=== PATIENT | male | born 1965 | race Caucasian/White ===

== ENCOUNTER 2020-08-09 08:02 | Emergency (ER) | payer OTHER, SELFPAY ==
[2020-08-09] VITALS (9 sets, daily range): BP systolic 118–162; BP diastolic 77–97; PULSE 64–74; RESP 11–23; TEMP 36.4; O2SAT 95–99; BMI 27.3
--- NOTE | 2020-08-09 08:15 | DI.RAD.S_ITS ---
PROCEDURE: XR CHEST 1V INDICATIONS: chest pain TECHNIQUE: One view of the chest was acquired. COMPARISON: None. FINDINGS: Surgical changes and devices: None. Lungs and pleura: Lungs are clear. No pleural effusions or pneumothorax. Mediastinum: Mediastinal contours appear normal. Heart size is normal. Bones and chest wall: No suspicious bony lesions. Overlying soft tissues appear unremarkable. IMPRESSION: No evidence acute pulmonary process. Dictated by: Gavin Martinez M.D. on 08/09/2020 at 8:44 Approved by: Gavin Martinez M.D. on 08/09/2020 at 8:44
[2020-08-09] MEDS: ASPIRIN 81 MG CHEW TAB 324 MG PO (08:21)
[2020-08-09] MEDS: SODIUM CHLORIDE 0.9% 1,000 ML 150 ML IV (08:21)
[2020-08-09 08:22] LABS: Add Manual Diff / Slide Review NO; Basophils Absolute Auto 100 /uL (0-100); Eosinophils Absolute Auto 100 /uL (0-450); Eosinophils Percent Auto 0.7 % (2-4); Hematocrit 51.2 % (41-53); Hemoglobin 17.5 g/dL (13.5-17.5); Lymphocytes Absolute Auto 2400 /uL (1100-4500); Lymphocytes Percent Auto 22.7 % (25-40); Mean Corpuscular HGB Conc 34.2 % (30-36); Mean Corpuscular Hemoglobin 29.8 PG (26-34); Mean Corpuscular Volume 87.1 fL (80-100); Monocytes Absolute Auto 300 /uL (0-900); Monocytes Percent Auto 3.3 % (3-14); Neutrophils Absolute Auto 7700 /uL (1500-7000); Neutrophils Percent Auto 72.3 % (50-75); Platelet Count 366 X10^3/uL (150-400); Red Blood Cell Count 5.88 X10^6/uL (4.5-5.9); White Blood Cell Count 10.6 X10^3/uL (4.5-11.0)
--- NOTE | 2020-08-09 08:22 | ED_ITS ---
HPI - Chest Pain General Chief Complaint: Shortness of Breath/Dyspnea Stated Complaint: almost collapsed at work, SOB, sweating profusely Time Seen by Provider: 08/09/20 08:15 Source: patient Mode of arrival: Ambulatory Limitations: no limitations History of Present Illness HPI narrative: Patient is a 55-year-old male history of smoking presenting with diaphoresis, bilateral arm weakness and feels like he is going to pass out. He said he was actually sweating last evening he says he usually sleeps thought his but he had some chills and shivers as well. She is otherwise feeling in good health. He denies any chest pain or shortness of breath. No loss of taste or smell or other COVID symptoms. 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 Hedenies any chest pain, numbness or tingling. No headache. Is having some neck pain. Onset (ago): minute(s) Duration: constant Onset: during exertion Related Data Previous Rx's Medication Instructions Recorded albuterol sulfate 2 puff INHALATION Q4-6H PRN #8.5 08/09/20 gram Allergies Allergy/AdvReac Type Severity Reaction Status Date / Time Penicillins [PENICILLINS] Allergy Unknown Unverified 08/29/17 12:11 Review of Systems Review of Systems ROS Unobtainable: All systems reviewed & are unremarkable except as noted in HPI and below Constitutional Constitutional: Reports chills, Reports excessive sweating, Reports fatigue, Denies frequent falls and Denies headache(s) Eyes Eyes: Denies change in vision, Denies eye discharge, Denies irritation and Denies loss of vision ENT Ears, Nose, Mouth, and Throat: Denies change in voice, Denies vertigo, Denies headache(s), Denies neck pain and Denies sore throat Cardiovascular Cardiovascular: Denies chest pain, Denies syncope, Denies irregular heart rhythm, Reports radiating jaw, neck or arm pain, Reports dyspnea and Reports dyspnea on exertion Respiratory Respiratory: Reports dyspnea and Reports dyspnea on exertion Gastrointestinal Gastrointestinal: Denies abdominal pain, Denies change in bowel habits, Denies diarrhea, Denies nausea and Denies vomiting Musculoskeletal Musculoskeletal: Denies myalgias, Reports muscle weakness and Denies neck pain Integumentary/Breasts Skin/Breast: Denies pruritus, Denies erythema, Denies rash and Denies wounds Neurologic Neurologic: Denies vertigo, Denies syncope, Denies frequent falls, Denies headache(s) and Denies loss of vision Endocrine Endocrine: Reports excessive sweating and Reports fatigue Patient History Medical History Erectile dysfunction Social History Smoking Status: Current every day smoker Smoking Status: Current every day smoker Substance Use Type: marijuana Exam Initial Vital Signs Initial Vital Signs: Vital Signs Temperature 97.6 F 08/09/20 08:05 Pulse Rate 74 08/09/20 08:05 Respiratory Rate 16 08/09/20 08:05 Blood Pressure 128/77 08/09/20 08:05 Pulse Oximetry 98 08/09/20 08:05 GENERAL: Alert 55-year-old male diffusely sweating and in no acute distress. HEENT: Head atraumatic,EOMI, pupils reactive, face symmetric, moist mucous membranes CARDIOVASCULAR: Regular rate and rhythm without murmurs, rubs or gallops. RESPIRATORY: Breath sounds equal bilaterally, no wheezes rales or rhonchi. ABDOMEN: Soft, nontender. Normoactive bowel sounds all 4 quadrants. No guarding or rebound. EXTREMITIES: Normal range of motion, no clubbing or edema. Neurovascularly intact NEUROLOGICAL: Alert and oriented x4.Normal gait and speech. Cranial nerves II through XII grossly intact. 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 Course Orders Ordered: ED Orders 08/09/20 08:13 COVID19 -Nasal swab/Pre-Proc Stat 08/09/20 08:15 XR chest 1V Stat Complete Blood Count AUTO DIFF Stat Comprehensive Metabolic Panel Stat D Dimer Stat Lactate (Lactic Acid) Stat Lipase Stat NT-proBNP (BNP-Adult 18+) Stat Procalcitonin Stat Troponin & CK Cardiac Panel Stat EKG-12 Lead Stat 08/09/20 10:16 Troponin I Stat Discontinued Medications Albuterol/Ipratropium (Albuterol/Ipratropium 3 Ml Ampul) 3 ml INH NOW ONE Stop: 08/09/20 08:52 Last Admin: 08/09/20 08:57 Dose: 3 ml Documented by: BELGICA Aspirin (Aspirin 81 Mg Chew Tab) 324 mg PO NOW ONE Stop: 08/09/20 08:16 Last Admin: 08/09/20 08:21 Dose: 324 mg Documented by: NASIM Sodium Chloride (Normal Saline 0.9%) 1,000 mls @ 150 mls/hr IV CONT ARIELLE Last Admin: 08/09/20 08:21 Dose: 150 mls/hr Documented by: NASIM Vital Signs Vital signs: Vital Signs - 8 hr 08/09/20 08:05 08/09/20 08:44 08/09/20 09:00 Temperature 97.6 F Pulse Rate 74 74 70 Respiratory Rate 16 12 11 L Blood Pressure 128/77 129/87 125/88 Pulse Oximetry 98 98 98 08/09/20 09:04 08/09/20 09:30 08/09/20 10:00 Temperature Pulse Rate 64 69 68 Respiratory Rate 16 12 21 Blood Pressure 118/83 Pulse Oximetry 95 96 96 08/09/20 10:01 08/09/20 10:30 08/09/20 11:00 Temperature Pulse Rate 67 71 65 Respiratory Rate 18 20 23 Blood Pressure 144/83 H 150/90 H 162/97 H Pulse Oximetry 96 97 99 MDM - Chest Pain Lab Data Attestation: I reviewed the patient's lab results. Result diagrams: 08/09/20 08:15 08/09/20 08:15 Labs: Lab Results 08/09/20 08/09/20 08/09/20 Range/Units 08:13 08:15 08:15 WBC 10.6 (4.5-11.0) X10^3/uL RBC 5.88 (4.5-5.9) X10^6/uL Hgb 17.5 (13.5-17.5) g/dL Hct 51.2 (41-53) % MCV 87.1 (80-100) fL MCH 29.8 (26-34) PG MCHC 34.2 (30-36) % RDW 14.0 (11.6-14.8) % Plt Count 366 (150-400) X10^3/uL Neut % (Auto) 72.3 (50-75) % Lymph % (Auto) 22.7 L (25-40) % [place] % (Auto) 3.3 (3-14) % Eos % (Auto) 0.7 L (2-4) % Baso % (Auto) 1.0 (0-2) % Neut # (Auto) 7700 H (2506-1169) /uL Lymph # (Auto) 2400 (2455-7716) /uL [place] # (Auto) 300 (0-900) /uL Eos # (Auto) 100 (0-450) /uL Baso # (Auto) 100 (0-100) /uL D-Dimer < 200 (<230) ng/mL Sodium (137-145) mmol/L Potassium (3.4-5.1) mmol/L Chloride (98-107) mmol/L Carbon Dioxide (22-32) mmol/L BUN (9-20) mg/dL Creatinine (0.66-1.25) mg/dL Estimated GFR (>60) mL/min BUN/Creatinine Ratio (6-22) Glucose (70-100) mg/dL Lactate (0.7-2.1) mmol/L Calcium (8.4-10.2) mg/dL Total Bilirubin (0.2-1.3) mg/dL AST (17-59) IU/L ALT (<50) IU/L Alkaline Phosphatase (38-126) U/L Total Creatine Kinase (55-170) U/L CK-MB (CK-2) (<2.37) ng/mL CK-MB (CK-2) Rel Index (1.5-5.0) % Troponin I (0.01-0.034) ng/mL NT-Pro-B Natriuret Pep (<125) pg/mL Total Protein (6.3-8.2) g/dL Albumin (3.5-5.0) g/dL Globulin (1.7-4.1) g/dL Albumin/Globulin Ratio (1.0-2.8) Lipase (23-300) U/L Procalcitonin (<0.5) ng/mL SARS-CoV-2 (PCR) Negative (Negative) 08/09/20 08/09/20 08/09/20 Range/Units 08:15 08:15 10:16 WBC (4.5-11.0) X10^3/uL RBC (4.5-5.9) X10^6/uL Hgb (13.5-17.5) g/dL Hct (41-53) % MCV (80-100) fL MCH (26-34) PG MCHC (30-36) % RDW (11.6-14.8) % Plt Count (150-400) X10^3/uL Neut % (Auto) (50-75) % Lymph % (Auto) (25-40) % [place] % (Auto) (3-14) % Eos % (Auto) (2-4) % Baso % (Auto) (0-2) % Neut # (Auto) (6447-4177) /uL Lymph # (Auto) (5241-1580) /uL [place] # (Auto) (0-900) /uL Eos # (Auto) (0-450) /uL Baso # (Auto) (0-100) /uL D-Dimer (<230) ng/mL Sodium 136 L (137-145) mmol/L Potassium 3.7 (3.4-5.1) mmol/L Chloride 102 (98-107) mmol/L Carbon Dioxide 22 (22-32) mmol/L BUN 19 (9-20) mg/dL Creatinine 1.22 (0.66-1.25) mg/dL Estimated GFR > 60.0 (>60) mL/min BUN/Creatinine Ratio 15.6 (6-22) Glucose 163 H (70-100) mg/dL Lactate 2.2 H (0.7-2.1) mmol/L Calcium 9.7 (8.4-10.2) mg/dL Total Bilirubin 0.5 (0.2-1.3) mg/dL AST 37 (17-59) IU/L ALT 36 (<50) IU/L Alkaline Phosphatase 102 (38-126) U/L Total Creatine Kinase 126 (55-170) U/L CK-MB (CK-2) 2.22 (<2.37) ng/mL CK-MB (CK-2) Rel Index 1.8 (1.5-5.0) % Troponin I < 0.012 < 0.012 (0.01-0.034) ng/mL NT-Pro-B Natriuret Pep 43 (<125) pg/mL Total Protein 7.6 (6.3-8.2) g/dL Albumin 4.7 (3.5-5.0) g/dL Globulin 2.9 (1.7-4.1) g/dL Albumin/Globulin Ratio 1.6 (1.0-2.8) Lipase 43 (23-300) U/L Procalcitonin 0.08 (<0.5) ng/mL SARS-CoV-2 (PCR) (Negative) 08/09/20 Range/Units 10:30 WBC (4.5-11.0) X10^3/uL RBC (4.5-5.9) X10^6/uL Hgb (13.5-17.5) g/dL Hct (41-53) % MCV (80-100) fL MCH (26-34) PG MCHC (30-36) % RDW (11.6-14.8) % Plt Count (150-400) X10^3/uL Neut % (Auto) (50-75) % Lymph % (Auto) (25-40) % [place] % (Auto) (3-14) % Eos % (Auto) (2-4) % Baso % (Auto) (0-2) % Neut # (Auto) (6289-5384) /uL Lymph # (Auto) (1470-4654) /uL [place] # (Auto) (0-900) /uL Eos # (Auto) (0-450) /uL Baso # (Auto) (0-100) /uL D-Dimer (<230) ng/mL Sodium (137-145) mmol/L Potassium (3.4-5.1) mmol/L Chloride (98-107) mmol/L Carbon Dioxide (22-32) mmol/L BUN (9-20) mg/dL Creatinine (0.66-1.25) mg/dL Estimated GFR (>60) mL/min BUN/Creatinine Ratio (6-22) Glucose (70-100) mg/dL Lactate 1.4 (0.7-2.1) mmol/L Calcium (8.4-10.2) mg/dL Total Bilirubin (0.2-1.3) mg/dL AST (17-59) IU/L ALT (<50) IU/L Alkaline Phosphatase (38-126) U/L Total Creatine Kinase (55-170) U/L CK-MB (CK-2) (<2.37) ng/mL CK-MB (CK-2) Rel Index (1.5-5.0) % Troponin I (0.01-0.034) ng/mL NT-Pro-B Natriuret Pep (<125) pg/mL Total Protein (6.3-8.2) g/dL Albumin (3.5-5.0) g/dL Globulin (1.7-4.1) g/dL Albumin/Globulin Ratio (1.0-2.8) Lipase (23-300) U/L Procalcitonin (<0.5) ng/mL SARS-CoV-2 (PCR) (Negative) Point of Care Testing Glucose POC 144 Imaging Data Chest x-ray: Radiologist's Impression: PROCEDURE: XR CHEST 1V INDICATIONS: chest pain TECHNIQUE: One view of the chest was acquired. COMPARISON: None. FINDINGS: Surgical changes and devices: None. Lungs and pleura: Lungs are clear. No pleural effusions or pneumothorax. Mediastinum: Mediastinal contours appear normal. Heart size is normal. Bones and chest wall: No suspicious bony lesions. Overlying soft tissues appear unremarkable. IMPRESSION: No evidence acute pulmonary process. Dictated by: Gavin Martinez M.D. on 08/09/2020 at 8:44 ECG Data Attestation: I personally reviewed and interpreted this ECG as follows: Prior ECG tracings: not available for review Interpretation: EKG 1. SINUS RHYTHM RATE 78 P.R. INTERVAL 138 QRS 82 QTC [address] CHANGES NO T-WAVE INVERSIONS EKG 2. SINUS RHYTHM RATE [address] CHANGES EKG 3. SINUS RHYTHM RATE [address] CHANGES NO T-WAVE INVERSIONS MDM Narrative Medical decision making narrative: The patient states that he has history of profuse sweating it is normal for him. He denies any chest pain 2 troponins are -3 EKGs do not show any ischemic changes. I have strongly encouraged patient to stay in the hospital for stress test numbness explained to him I cannot rule out any ischemic disease without it. At this time he is quite adamant about going home stating that he cannot afford to stay in hospital. I have explained to him about insurance and he says he cannot take the time off work. He understands that he may return to the ED at any time and in fact encouraged him to do so. He does not have a primary care provider which I have also explained to him I would like him to have who can help order his stress test he states that he will get 1. The patient is clinically sober, free from distracting injury, appears to have intact insight, judgment and reason. Does not meet criteria for involuntary hospitalization. Patient has the capacity to make decisions. Discharge Plan Departure Patient Disposition: Left Against Medical Advice Clinical Impression: Atypical chest pain, Left against medical advice Instructions: DI for Atypical Chest Pain Activity Restrictions/Additional Instructions: *You have been diagnosed with atypical chest pain *What to do: You are leaving against medical advice. I recommended that he stay in the hospital seems to have full workup of your heart to ensure that he will not have a heart attack. At this time you refused. Please be sure to get a primary care provider so that they can order a stress test for you. You are welcome back to the emergency department at any time if your chest pain arm pain or shortness of breath should return. *Continue to take medications as directed Aspirin 81 mg once a day Albuterol 1-2 puffs every 4 hours only if needed for acute shortness of breath this is your rescue inhaler *Follow up with your primary care provider in 2-3 days *Return to ER if you should have worsening chest pain, shortness of breath, or any new, worsening or concerning symptoms Prescriptions: New albuterol sulfate 90 mcg/actuation HFA aerosol inhaler 2 puff INHALATION Q4-6H PRN (Reason: shortness of breath or wheezing) Qty: 8.5 RF: 0 Referrals: [facility] [Outside] Stand Alone Forms: Against Medical Advice
--- NOTE | 2020-08-09 08:24 | PC.NURSE ---
pt profusely sweating on arrival.
[2020-08-09 08:32] LABS: D Dimer < 200 ng/mL (<230); Lactate (Lactic Acid) 2.2 mmol/L (0.7-2.1)
[2020-08-09 08:33] LABS: Alanine Aminotransferase 36 IU/L (<50); Albumin 4.7 g/dL (3.5-5.0); Albumin Globulin Ratio 1.6 (1.0-2.8); Alkaline Phosphatase 102 U/L (38-126); Aspartate Aminotransferase 37 IU/L (17-59); BUN Creatinine Ratio 15.6 (6-22); Bilirubin Total 0.5 mg/dL (0.2-1.3); Blood Urea Nitrogen 19 mg/dL (9-20); Calcium 9.7 mg/dL (8.4-10.2); Carbon Dioxide 22 mmol/L (22-32); Chloride 102 mmol/L (98-107); Creatine Kinase 126 U/L (55-170); Estimated Glomerular Filt Rate > 60.0 mL/min (>60); Globulin 2.9 g/dL (1.7-4.1); Glucose 163 mg/dL (70-100); HEMOLYSIS < 15 (0-50); Lipase 43 U/L (23-300); Potassium 3.7 mmol/L (3.4-5.1); Sodium 136 mmol/L (137-145); Total Protein 7.6 g/dL (6.3-8.2)
[2020-08-09 08:36] LABS: COVID19 -Nasal RAPID Negative (Negative)
[2020-08-09 08:46] LABS: NT-proBNP (BNP-Adult 18+) 43 pg/mL (<125); Troponin I < 0.012 ng/mL (0.01-0.034)
[2020-08-09 08:48] LABS: CKMB % Relative Index 1.8 % (1.5-5.0); Creatine Kinase MB 2.22 ng/mL (<2.37)
[2020-08-09 08:50] LABS: Procalcitonin 0.08 ng/mL (<0.5)
[2020-08-09] MEDS: ALBUTEROL/IPRATROPIUM 3 ML AMPUL INH (08:57)
[2020-08-09 10:18] LABS: Reflexed Lactate in 2 Hours Y
[2020-08-09 10:51] LABS: Troponin I < 0.012 ng/mL (0.01-0.034)
[2020-08-09 10:54] LABS: Lactate 2HR (Lactic Acid Rflx) 1.4 mmol/L (0.7-2.1)
--- NOTE | 2020-08-09 11:01 | PC.NURSE ---
dr. issa v.o. to change ns fluids to bolus at 999mls/hr
--- NOTE | 2020-09-06 08:41 | PC.NURSE ---
Late entry: NS 1 L infused at 1140 hrs.
== END 2020-08-09 11:54 | disposition left against medical advice (07) ==
PROVIDERS: Emergency Provider Emergency Medicine
DX: R07.89 Other chest pain (principal); M54.2 Cervicalgia; R53.1 Weakness; Z20.822 Contact with and (suspected) exposure to COVID-19
CPT/HCPCS: 36415; 71045; 80053; 82550; 82553; 82962; 83605; 83690; 83880; 84145; 84484; 85025; 85379; 87635; 93005; 93010; 94640; 96360; 96361; 99284; 99285; C9803

== ENCOUNTER 2023-08-07 14:35 | Emergency (ER) | payer OTHER, SELFPAY ==
[2023-08-07 14:38] VITALS: BP 140/80; PULSE 104; RESP 18; TEMP 36.6; O2SAT 98; BMI 22.5
--- NOTE | 2023-08-07 15:43 | ED_ITS ---
HPI - Extremity Injury (Lower) <Carl Manrique PA-C - Last Filed: 08/07/23 15:51> General Chief Complaint: Extremity Injury, Lower Stated Complaint: groin injury Time Seen by Provider: 08/07/23 14:40 Source: patient Mode of arrival: Ambulatory History of Present Illness HPI Narrative: 58-year-old male presents to the ED status post a table saw injury that occurred just prior to arrival today. Patient states he was working on his stable saw when a piece of plastic got lose and struck his right leg just below his right groin. Patient has a 2 in shallow abrasion. Patient denies numbness, tingling, weakness. Patient denies swelling. Patient endorses pain in the groin and upper leg area. Patient is able to bear weight and walk. Related Data Previous Rx's Medication Instructions Recorded albuterol sulfate 90 mcg/actuation 2 puff inhalation Q4-6H PRN 08/09/20 aerosol inhaler shortness of breath or wheezing #8.5 grams cyclobenzaprine 10 mg tablet 10 mg PO TID PRN muscle spasm #20 08/07/23 tabs Allergies Allergy/AdvReac Type Severity Reaction Status Date / Time Penicillins [PENICILLINS] Allergy Unknown Unverified 08/29/17 12:11 Review of Systems <Carl Manrique PA-C - Last Filed: 08/07/23 15:51> Constitutional Constitutional: Denies chills, Denies fatigue, Denies fever(s), Denies frequent falls, Denies lethargy and Denies weakness Eyes Eyes: Denies change in vision, Denies eye discharge, Denies irritation and Denies loss of vision ENT Ears, Nose, Mouth, and Throat: Denies change in voice, Denies dizziness, Denies neck pain, Denies sore throat and Denies throat swelling Cardiovascular Cardiovascular: Denies chest pain, Denies irregular heart rhythm, Denies lightheadedness, Denies palpitations, Denies dyspnea, Denies dyspnea on exertion and Denies orthopnea Respiratory Respiratory: Denies cough, Denies dyspnea, Denies dyspnea on exertion and Denies wheezing Gastrointestinal Gastrointestinal: Denies abdominal pain, Denies change in bowel habits, Denies diarrhea, Denies nausea and Denies vomiting Musculoskeletal Musculoskeletal: Denies neck pain and Denies numbness Comments: Right upper leg pain, abrasion Integumentary/Breasts Skin/Breast: Denies pruritus, Denies erythema, Denies rash and Denies wounds Neurologic Neurologic: Denies behavioral changes, Denies confusion, Denies dizziness, Denies frequent falls, Denies loss of vision, Denies numbness and Denies weakness Psychiatric Psychiatric: Denies anxiety, Denies behavioral changes, Denies confusion, Denies depression, Denies homicidal ideation and Denies suicidal ideation Endocrine Endocrine: Denies fatigue, Denies flushing and Denies palpitations Hematologic/Lymphatic Hematologic/Lymphatic: Denies easy bruising Allergic/Immunologic Allergic/Immunologic: Denies urticaria, Denies throat swelling and Denies wheezing Patient History <Carl Manrique PA-C - Last Filed: 08/07/23 15:51> Medical History Erectile dysfunction Social History Smoking Status: Current every day smoker Smoking Status: Current every day smoker tobacco type: e-cigarettes Substance Use Type: marijuana Exam <Carl Manrique PA-C - Last Filed: 08/07/23 15:51> Narrative Exam Narrative: Const General:?cooperative, healthy appearing and comfortable [facility] Head:?normal to inspection Ears:?hearing grossly normal bilaterally Nose:?external nose normal Face and sinus:?normal facial exam and sinuses nontender Mouth:?oral mucosae normal Throat:?posterior oropharynx normal Eyes General:?appearance normal, both eyes and all related structures Neck Neck:?normal visual inspection and no lymphadenopathy noted Resp Effort & Inspection:?normal respiratory effort Auscultation:?clear to auscultation bilaterally Cardio Rate:?regular rate Rhythm:?regular rhythm Musculoskeletal There is a 2 inch linear abrasion to the top of the right thigh, below the groin area. No bleeding, swelling, bruising. Compartments soft. Neurovascularly intact. Gait is normal. No injuries noted to the penis, no tenderness. Neuro General:?patient alert, patient awake and patient oriented x3 Initial Vital Signs Initial Vital Signs: Vital Signs Temperature 97.8 F 08/07/23 14:38 Pulse Rate 104 H 08/07/23 14:38 Respiratory Rate 18 08/07/23 14:38 Blood Pressure 140/80 08/07/23 14:38 Pulse Oximetry 98 08/07/23 14:38 Oxygen Delivery Method Room Air 08/07/23 14:38 <DO Konrad Arce Last Filed: 08/10/23 08:56> Initial Vital Signs Initial Vital Signs: Vital Signs Temperature 97.8 F 08/07/23 14:38 Pulse Rate 104 H 08/07/23 14:38 Respiratory Rate 18 08/07/23 14:38 Blood Pressure 140/80 08/07/23 14:38 Pulse Oximetry 98 08/07/23 14:38 Oxygen Delivery Method Room Air 08/07/23 14:38 Course <Carl Manrique PA-C - Last Filed: 08/07/23 15:51> Vital Signs Vital signs: Vital Signs - 8 hr 08/07/23 14:38 Temperature 97.8 F Pulse Rate 104 H Respiratory Rate 18 Blood Pressure 140/80 Pulse Oximetry 98 Oxygen Delivery Method Room Air <Mouna Jarquin DO - Last Filed: 08/10/23 08:56> Vital Signs Vital signs: Vital Signs - 8 hr 08/07/23 14:38 Temperature 97.8 F Pulse Rate 104 H Respiratory Rate 18 Blood Pressure 140/80 Pulse Oximetry 98 Oxygen Delivery Method Room Air MDM - Extremity Injury (Lower) <Carl Manrique PA-C - Last Filed: 08/07/23 15:51> MDM Narrative Medical decision making narrative: 58-year-old male presents to the ED status post a table saw injury that occurred just prior to arrival today. Physical exam is reassuring for a 2 in linear abrasion to the top of the right leg, below the groin. No bleeding. Patient is able to move all extremities with full range of motion. Neurovascularly intact. Gait is normal. There is no swelling of the leg or bruising. No significant tenderness to palpation. Penis appears impact with no pain. No concern for bony or vascular injury. Patient's pain likely due to musculoskeletal sprain/strain. Recommend muscle relaxants, ibuprofen, Tylenol for pain control. Recommend follow-up with PCP as soon as possible. ED return precautions discussed with patient. Patient verbalized understanding. Medical records reviewed: Yes Discharge Plan Departure Patient Disposition: Home Clinical Impression: Abrasion Instructions: DI for Leg Pain Activity Restrictions/Additional Instructions: You were evaluated in the ED today for a upper leg injury from a table saw. You have a small abrasion that has been cleaned and dressed in the ED. it is reassuring that you have no swelling or bruising and you were able to walk well. It appears that you have in the abrasion from the injury. You may take ibuprofen 800 mg every 8 hours for pain. You can also take 1000 mg of Tylenol every 8 hours for pain. You are being prescribed Flexeril which is a muscle relaxant for pain relief. Please refrain from taking it while driving or operat ing machinery. Please follow-up with your PCP as soon as possible. Return to the ED if you have worsening symptoms, numbness, tingling, weakness. Prescriptions: New cyclobenzaprine 10 mg tablet 10 mg PO TID PRN (Reason: muscle spasm) Qty: 20 0RF No Action albuterol sulfate 90 mcg/actuation HFA aerosol inhaler 2 puff INHALATION Q4-6H PRN (Reason: shortness of breath or wheezing) Qty: 8.5 0RF Referrals: Miscellaneous,Doctor, MD [Primary Care Provider] - Stand Alone Forms: Patient Portal/API, Work Release Note ED Sign-out <Mouna Jarquin DO - Last Filed: 08/10/23 08:56> Cosign ED Attending Kelvinature Attestation: I was immediately available in the department for consultation.
== END 2023-08-07 15:42 | disposition home or self-care (01) ==
PROVIDERS: Emergency Provider Student in an Organized Health Care Education/Training Program
DX: S80.811A Abrasion, right lower leg, initial encounter (principal); X58.XXXA Exposure to other specified factors, initial encounter
CPT/HCPCS: 99281